=== PATIENT | male | born 1960 | race Caucasian/White ===

== ENCOUNTER → 2018-01-13 | Outpatient (CLI) | payer MEDICAID, MEDICARE ==
[~2018-01-13] VITALS: Ht 175.3 cm; Wt 126.0 kg
[2018-01-13 12:07] VITALS: BP 132/74
== END | disposition home or self-care (01) ==
LOC: SRCNTR 11:45
PROVIDERS: ATTEND Internal Medicine Clinical Cardiac Electrophysiology
DX: I11.0 Hypertensive heart disease with heart failure (principal); I50.9 Heart failure, unspecified; I25.10 Atherosclerotic heart disease of native coronary artery without angina pectoris
CPT/HCPCS: G0463

== ENCOUNTER → 2018-01-27 | Outpatient (CLI) | payer MEDICARE, MEDICAID ==
[~2018-01-27] VITALS: Ht 175.3 cm; Wt 107.0 kg
[~2018-01-27] MED LIST: ASPI81 PO; ATOR40TA28 PO; CARV12 PO; FURO40 PO; INSLAN SQ; INSU100V SQ; LISI40TA4 PO; SPIR50 PO; WARF5 PO
[2018-01-27 10:40] VITALS: BP 119/61
== END | disposition home or self-care (01) ==
LOC: SRCNTR 10:32
PROVIDERS: ATTEND Internal Medicine Clinical Cardiac Electrophysiology
DX: Z45.02 Encounter for adjustment and management of automatic implantable cardiac defibrillator (principal); I11.0 Hypertensive heart disease with heart failure; I50.9 Heart failure, unspecified; I10 Essential (primary) hypertension
CPT/HCPCS: G0463